=== PATIENT | male | born 1995 | race Caucasian/White ===

== ENCOUNTER 2021-03-16 00:35 | Emergency (ER) | payer SELFPAY ==
[~2021-03-16] VITALS: Ht 177.8 cm; Wt 91.0 kg
[2021-03-16 01:06] LABS: HEMATOCRIT 45.7 % (39.0-50.0); HEMOGLOBIN 15.4 g/dl (14.0-18.0); IMMATURE GRANULOCYTES 0.2 % (0.0-5.0); MEAN CELL VOLUME 85.3 fL CALC (80.0-100.0); MEAN CORPUSCULAR HGB 28.7 pG CALC (26.0-32.0); MEAN CORPUSCULAR HGB CONC 33.7 g/dL CAL (32.0-36.0); NEUT# 4.82 thou/uL (1.82-7.42); RED BLOOD COUNT 5.36 mill/uL (4.70-6.10); RED CELL DISTRI WIDTH 12.3 % (11.5-15.5)
[2021-03-16 01:24] LABS: ALBUMIN 4.7 g/dL (3.2-5.0); ALKALINE PHOSPHATASE 61 u/l (38-126); ANION GAP 14 (6-22 (CALC)); BILIRUBIN, TOTAL 0.7 mg/dL (0.0-1.4); BUN 20 mg/dL (9-20); BUN/CREATININE RATIO 27 (12-20 (CALC)); CARBON DIOXIDE 30 mmol/l (22-30); CHLORIDE 102 mmol/l (95-108); CREATININE 0.7 mg/dL (0.7-1.3); GFR > 60 ML/MIN (>=60 (CALC)); GFR FOR AFR.AMER. > 60 ML/MIN (>=60 (CALC)); POTASSIUM 3.7 mmol/l (3.5-5.1); SGOT/AST 26 u/l (17-59); SODIUM 141 mmol/l (137-146); TOTAL PROTEIN 8.1 g/dL (6.3-8.2)
[2021-03-16 01:54] LABS: TSH, 3RD GENERATION 3.59 uIU/mL (0.47 - 4.68)
[2021-03-16 02:15] LABS: URINE BILIRUBIN - DIPSTICK NEGATIVE (NEGATIVE); URINE BLOOD DIPSTICK NEGATIVE (NEGATIVE); URINE COLOR YELLOW; URINE GLUCOSE - DIPSTICK NEGATIVE (NEGATIVE); URINE KETONE NEGATIVE (NEGATIVE); URINE LEUK ESTERASE NEGATIVE (NEGATIVE); URINE PROTEIN - DIPSTICK NEGATIVE (NEG-TRACE); URINE UROBILINOGEN - DIPSTICK 0.2 E.U./dL (0.2)
[2021-03-16 02:22] LABS: URINE NITRITE - DIPSTICK NEGATIVE (Negative)
[2021-03-16 02:40] VITALS: BP 122/67
== END 2021-03-16 02:45 | disposition home or self-care (01) | DRG 866 ==
LOC: ED 00:35
PROVIDERS: Family Medicine
DX: B34.9 Viral infection, unspecified (principal); Z20.822 Contact with and (suspected) exposure to COVID-19

== ENCOUNTER 2021-06-10 16:57 | Emergency (ER) | payer SELFPAY ==
[2021-06-10] MEDS ORDERED: AMOXICILLIN500 MG PO (20:41)
[2021-06-10 21:23] VITALS: BP 128/66
[2021-06-10] MEDS ORDERED: ULTRAM50 M1 PO (21:27)
== END 2021-06-10 21:05 | disposition home or self-care (01) | DRG 159 ==
LOC: ED 16:57
PROC: 0CQ7XZZ Repair Tongue, External Approach (ICD-10-PCS; principal; 2021-06-10)
DX: S01.512A Laceration without foreign body of oral cavity, initial encounter (principal); S02.5XXA Fracture of tooth (traumatic), initial encounter for closed fracture; W20.8XXA Other cause of strike by thrown, projected or falling object, initial encounter; Y93.89 Activity, other specified; Y92.89 Other specified places as the place of occurrence of the external cause; Y99.0 Civilian activity done for income or pay